=== PATIENT | female | born 1955 | race Two or more races ===

== ENCOUNTER 2019-12-18 05:45 | Day surgery (SDC) | payer OTHER ==
[~2019-12-18 05:45] MED LIST: ATORVASTATIN CA40 MG PO; COZAAR100 MG PO; LIPO-FLAVONOID1 EACH PO; SYNTHROID88 MCG PO
[2019-12-18] MEDS ORDERED: PERCOCET 5-3251 EACH PO (09:03)
== END 2019-12-18 12:25 | disposition home or self-care (01) ==
LOC: CIR.AMB 05:45 → ADM 11:15 → CIR.AMB 11:15
PROVIDERS: ATTEND Surgery
DX: D35.1 Benign neoplasm of parathyroid gland (principal)